=== PATIENT | female | born 1985 | race Caucasian/White ===

== ENCOUNTER 2016-10-22 14:27 | Emergency (ER) | payer MEDICAID ==
[2016-10-22] MEDS ORDERED: CLINDAMYCIN 150 MG CAPSULE PO STA (14:38)
[2016-10-22] MEDS ORDERED: HYDROcod/ACETAM 5/325 MG TABLET PO STA (14:38)
[2016-10-22] MEDS ORDERED: CLINDAMYCIN 150 MG CAPSULE PO ONE (14:46)
[2016-10-22] MEDS ORDERED: HYDROcod/ACETAM 5/325 MG TABLET ONE (14:46)
== END 2016-10-22 14:59 | disposition home or self-care (01) ==
DX: K04.7 Periapical abscess without sinus (principal); K02.9 Dental caries, unspecified; F17.200 Nicotine dependence, unspecified, uncomplicated
CPT/HCPCS: 99283; A9270

== ENCOUNTER 2016-10-24 10:41 | Emergency (ER) | payer MEDICAID | END 2016-10-24 13:59 | disposition home or self-care (01) | DX: K04.7 Periapical abscess without sinus (principal); F17.200 Nicotine dependence, unspecified, uncomplicated ==

== ENCOUNTER 2017-01-13 12:29 | Emergency (ER) | payer MEDICAID ==
[2017-01-13] MEDS ORDERED: ONDANSETRON ODT 4 MG TABLET TL STA (13:13)
[2017-01-13] MEDS ORDERED: ONDANSETRON ODT 4 MG TABLET ONE (13:17)
== END 2017-01-13 13:22 | disposition home or self-care (01) ==
DX: R11.2 Nausea with vomiting, unspecified (principal); R03.0 Elevated blood-pressure reading, without diagnosis of hypertension; F17.200 Nicotine dependence, unspecified, uncomplicated
CPT/HCPCS: 99283; Q0162

== ENCOUNTER 2017-03-23 21:18 | Emergency (ER) | payer MEDICAID ==
[2017-03-23] MEDS ORDERED: IBUPROFEN 800 MG TABLET PO STA (21:32)
[2017-03-23] MEDS ORDERED: IBUPROFEN 800 MG TABLET PO ONE (21:34)
--- NOTE | 2017-03-23 21:37 | ED Physician Documentation ---
PD HPI LOWER EXT INJURY - Stated complaint Stated Complaint: LT ANKLE PAIN - Chief complaint Chief Complaint: Ext Problem - History obtained from History obtained from: Patient - History of Present Illness PD HPI LOW EXT INJURY LOCATION: Left, Ankle Type of injury: Fall (trip and fall over her cat with inversion inj L ankle and cannot walk, no other inj.) Review of Systems Constitutional: reports: Reviewed and negative Cardiac: reports: Reviewed and negative Respiratory: reports: Reviewed and negative PD PAST MEDICAL HISTORY - Past Medical History Past Medical History: Yes Cardiovascular: None Respiratory: None Neuro: None Endocrine/Autoimmune: None - Past Surgical History Past Surgical History: Yes HEENT: Tonsil/Adenoidectomy - Present Medications Home Medications: Ambulatory Orders Medication Instructions Recorded Confirmed Ondansetron HCl [Zofran] 4 mg PO Q6H PRN #10 tablet 01/13/17 - Allergies Allergies/Adverse Reactions: Allergies Allergy/AdvReac Type Severity Reaction Status Date / Time acetaminophen [From Percocet] AdvReac Emesis Verified 03/23/17 21:31 oxycodone HCl * AdvReac Emesis Verified 03/23/17 21:31 [From Percocet] - Social History Does the pt smoke?: Yes Smoking Status: Current every day smoker Does the pt drink ETOH?: Yes Does the pt have substance abuse?: No - Immunizations Immunizations are current?: Yes - POLST Patient has POLST: No PD ED PE NORMAL - Vitals Vital signs reviewed: Yes - General General: Alert and oriented X 3, No acute distress - Neck Neck: Supple, no meningeal sign, No bony TTP - Extremities Extremities: Other (Quite TTP and swollen L lateral malleolus. No medial TTP or Foot or prox fibular TTP.) - Neuro Neuro: Alert and oriented X 3, Normal speech - Psych Psych: Normal mood, Normal affect Results - Vitals Vitals: Vital Signs - 24 hr 03/23/17 03/23/17 21:27 22:31 Temperature 36.8 C Heart Rate 97 78 Respiratory 19 16 Rate Blood Pressure 128/72 125/78 O2 Saturation 100 98 Oxygen O2 Source Room air - Rads (name of study) 3v L ankle Radiology: EMP read contemporaneously (lateral STS, no frx) Departure - Departure Disposition: 01 Home, Self Care Clinical Impression: Left ankle sprain Qualifiers: Encounter type: initial encounter Involved ligament of ankle: unspecified ligament Qualified Code(s): S93.402A - Sprain of unspecified ligament of left ankle, initial encounter Condition: Good Record reviewed to determine appropriate education?: Yes Instructions: ED Sprain Ankle W X Ray Comments: Recheck with your physician in 1 week if not better. Forms: Activity restrictions Discharge Date/Time: 03/23/17 22:38
[2017-03-23] MEDS ORDERED: HYDROcod/ACET 5/325 Prepack 6 PO STA (21:49)
[2017-03-23] MEDS ORDERED: HYDROcod/ACET 5/325 Prepack 6 PO ONE (22:01)
--- NOTE | 2017-03-23 22:17 | XRAY Preliminary Report ---
Exam: XR Ankle 3 View LT IMPRESSION: Large lateral and moderate anterior ankle soft tissue swelling. No evidence for acute fra cture. [facility] SITE ID: [id number]
--- NOTE | 2017-03-23 22:20 | XRAY Report ---
EXAM: LEFT ANKLE RADIOGRAPHY EXAM DATE: 03/23/2017 09:45 PM. CLINICAL HISTORY: Ankle injury. Fall. Lateral ankle pain and swelling. COMPARISON: None. TECHNIQUE: 3 views. FINDINGS: Bones: Normal. No fractures or bone lesions. Joints: Normal. No effusion. No subluxations. The ankle mortise is normally aligned. Soft Tissues: Large lateral and moderate anterior ankle soft tissue swelling. IMPRESSION: Large lateral and moderate anterior ankle soft tissue swelling. No evidence for acute fra cture. [facility] Referring Provider Line: [phone] SITE ID: [id number]
[2017-03-23 22:32] VITALS: BP 125/78
== END 2017-03-23 22:38 | disposition home or self-care (01) ==
LOC: ED 21:18
DX: S93.402A Sprain of unspecified ligament of left ankle, initial encounter (principal); W01.0XXA Fall on same level from slipping, tripping and stumbling without subsequent striking against object, initial encounter; F17.200 Nicotine dependence, unspecified, uncomplicated
CPT/HCPCS: 73610; 99283; A9270

== ENCOUNTER 2018-05-08 14:15 | Emergency (ER) | payer MEDICAID ==
[2018-05-08 14:19] VITALS: BP 137/78
--- NOTE | 2018-05-08 16:39 | ED Physician Documentation ---
PD HPI ANIMAL BITE - Stated complaint Stated Complaint: LT FING-PET RAT BITE - Chief complaint Chief Complaint: General - History obtained from History obtained from: Patient PD PAST MEDICAL HISTORY - Past Medical History Cardiovascular: None Respiratory: None Endocrine/Autoimmune: None - Past Surgical History Past Surgical History: Yes HEENT: Tonsil/Adenoidectomy - Present Medications Home Medications: Ambulatory Orders Medication Instructions Recorded Confirmed Amox/Clav 875/125 [Augmentin] 1 each PO BID #10 tablet 05/08/18 - Allergies Allergies/Adverse Reactions: Allergies Allergy/AdvReac Type Severity Reaction Status Date / Time acetaminophen [From Percocet] AdvReac Emesis Verified 03/23/17 21:31 oxycodone HCl * AdvReac Emesis Verified 05/08/18 14:19 [From Percocet] - Social History Does the pt smoke?: Yes Smoking Status: Current every day smoker Does the pt drink ETOH?: Yes Does the pt have substance abuse?: No - Immunizations Immunizations are current?: Yes - POLST Patient has POLST: No Results - Vitals Vitals: Vital Signs - 24 hr 05/08/18 14:17 Temperature 36.9 C Heart Rate 91 Respiratory 20 Rate Blood Pressure 137/78 H O2 Saturation 99 Oxygen O2 Source Room air PD MEDICAL DECISION MAKING - Sepsis Event Vital Signs: Vital Signs - 24 hr 05/08/18 14:17 Temperature 36.9 C Heart Rate 91 Respiratory 20 Rate Blood Pressure 137/78 H O2 Saturation 99 Oxygen O2 Source Room air Departure - Departure Disposition: 01 Home, Self Care Clinical Impression: Rat bite Qualifiers: Encounter type: initial encounter Qualified Code(s): W53.11XA - Bitten by rat, initial encounter Condition: Stable Record reviewed to determine appropriate education?: Yes Instructions: ED Bite Animal General Prescriptions: Amox/Clav 875/125 [Augmentin] 1 each PO BID #10 tablet Comments: Watch for signs of infection at the wound or general symptoms such as fevers, rash or body aches. Start the antibiotic if these develop, otherwise you do not need antibiotics preventatively.
== END 2018-05-08 16:55 | disposition home or self-care (01) ==
LOC: ED 14:15
DX: S60.479A Other superficial bite of unspecified finger, initial encounter (principal); W53.11XA Bitten by rat, initial encounter
CPT/HCPCS: 99283

== ENCOUNTER 2019-02-28 08:00 | Outpatient (CLI) | payer MEDICAID ==
[2019-02-28 22:33] LABS: TRICHOMONAS VAGINALIS DNA NEGATIVE (NEGATIVE)
== END 2019-02-28 23:59 | disposition home or self-care (01) ==
LOC: LAB.R 08:00
PROVIDERS: ATTEND Obstetrics & Gynecology
DX: Z11.3 Encounter for screening for infections with a predominantly sexual mode of transmission (principal)
CPT/HCPCS: 87491; 87591; 87661

== ENCOUNTER 2019-02-28 14:03 | Outpatient (CLI) | payer MEDICAID ==
[2019-03-01 06:47] LABS: HEPATITIS B SURFACE ANTIGEN NON-REACTIVE (NON-REACTIVE)
[2019-03-01 06:50] LABS: HEPATITIS C ANTIBODY NON-REACTIVE (NON-REACTIVE)
[2019-03-03 16:17] LABS: HIV AG/AB 4TH GEN NON-REACTIVE (NON-REACTIVE)
== END 2019-02-28 14:04 | disposition home or self-care (01) ==
LOC: LAB 14:03
PROVIDERS: ATTEND Obstetrics & Gynecology
DX: Z11.3 Encounter for screening for infections with a predominantly sexual mode of transmission (principal)
CPT/HCPCS: 36415; 81599; 86592; 86803; 87340; 87389; 87491; 87591; 87661

== ENCOUNTER 2020-08-31 20:32 | Outpatient (CLI) | payer MEDICAID | END 2020-08-31 20:33 | disposition home or self-care (01) | LOC: COV 20:32 | PROVIDERS: ATTEND Family Medicine | DX: Z20.828 Contact with and (suspected) exposure to other viral communicable diseases (principal) ==